=== PATIENT | male | born 1950 | race Caucasian/White ===

== ENCOUNTER → 2017-01-26 | Outpatient (CLI) | payer OTHER, MEDICARE ==
[2017-01-26 09:36] LABS: BLOOD UREA NITROGEN 18 mg/dL (7-22); BUN/CREATININE RATIO 25.71 (6-20); CALCIUM 9.2 mg/dL (8.7-10.7); CHOL/HDL RATIO 3.36 RATIO (0-4.0); EST GLOMERULAR FILTRATION > 60 (>60 ml/min/1.73m(2)); HDL CHOLESTEROL 36 mg/dL (40-150); SERUM CHOLESTEROL 121 mg/dL (120-200)
[2017-01-26 09:43] LABS: BASOPHILS # (AUTO) 0.02 10*3/UL; BASOPHILS % (AUTO) 0.3 % (0-1); EOSINOPHILS # (AUTO) 0.08 10*3/UL; EOSINOPHILS % (AUTO) 1.3 % (0-8); HEMATOCRIT 42.4 % (42.0-52.0); HEMOGLOBIN 14.4 g/dL (14.0-18.0); LYMPHOCYTES # (AUTO) 1.67 10*3/uL; MEAN CORPUSCULAR HEMOGLOBIN 29.6 PG (27-31); MEAN CORPUSCULAR VOLUME 87.2 FL (80-90); MEAN PLATELET VOLUME 9.5 FL (7.4-12.2); MONOCYTES # (AUTO) 0.51 10*3/UL (0.3-0.8); MONOCYTES % (AUTO) 8.5 % (5-15); NEUTROPHILS # (AUTO) 3.72 10*3/UL; NEUTROPHILS % (AUTO) 61.9 % (50-80); RED BLOOD COUNT 4.86 10^6/uL (4.70-6.10)
[2017-01-26 09:49] LABS: PLATELET MORPHOLOGY COMMENT NORMAL MORPHOLOGY (NORM); RBC MORPHOLOGY COMMENT NORMAL MORPHOLOGY (NORM); WBC MORPHOLOGY COMMENT NORMAL MORPHOLOGY (NORM)
[2017-01-26 10:02] LABS: HEMOGLOBIN A1C 5.56 % (4.2-6.0)
== END ==
LOC: LAB 09:11
PROVIDERS: ATTEND Internal Medicine
DX: E78.5 Hyperlipidemia, unspecified (principal); H81.12 Benign paroxysmal vertigo, left ear; I10 Essential (primary) hypertension; Z79.899 Other long term (current) drug therapy; Z12.5 Encounter for screening for malignant neoplasm of prostate
CPT/HCPCS: 36415; 80053; 80061; 82550; 83036; 84443; 85025; G0103

== ENCOUNTER → 2017-01-30 | Outpatient (CLI) | payer OTHER, MEDICARE | LOC: MMPC 11:11 | PROVIDERS: ATTEND Internal Medicine | DX: E78.5 Hyperlipidemia, unspecified (principal); I10 Essential (primary) hypertension; Z86.010 Personal history of colon polyps | CPT/HCPCS: 99214; G0463 ==

== ENCOUNTER → 2017-02-06 | Outpatient (CLI) | payer OTHER, MEDICARE | LOC: MMPC 11:11 | PROVIDERS: ATTEND Surgery | DX: K21.9 Gastro-esophageal reflux disease without esophagitis (principal); Z86.010 Personal history of colon polyps | CPT/HCPCS: 99213; G0463 ==

== ENCOUNTER 2017-02-15 09:08 | Day surgery (SDC) | payer OTHER, MEDICARE ==
[~2017-02-15 09:08] MED LIST: LIDOCAINE 2% VISCOUS(20 MG/1 ML) - 15 ML UD CUP PO ONE; LIDOCAINE W/ SODIUM BICARB 0.5 ML SYR ONE; Lactated Ringers 1,000 ML PRIMARY IV ONE; fentaNYL Inj 100 MCG/2 ML VIAL ONE
--- NOTE | 2017-02-15 10:38 | GEN.OPNOTE ---
EGD / Colonoscopy Report Surgery Date: 02/15/17 Preoperative Diagnosis: GERD. Personal history of colon polyps. History of dysplastic colon polyp. Postoperative Diagnosis: Same. Procedure: #1 esophagogastroduodenoscopy with biopsy. #2 complete colonoscopy with biopsy and destruction of 2 small polyps at 15 cm and biopsy of an abnormal patch of mucosa at 13 cm from the anal verge. Surgeon: Ernesto Russell MD Anesthesia Provider: Bhupinder Hughes CRNA Anesthesia Type: MAC Indications: See preoperative diagnosis EGD Findings: Esophagus: [Normal] GE Junction : [Inflammatory changes consistent with reflux. Irregularity of the Z line.] Fundus : [Normal] Body : [Normal] Prepyloric : [Mild erythema] Small Intestine : [Mild erythema] A lubricated flexible upper endoscope was inserted and passed through the esophagus and stomach into the duodenum. There is some erythema of the duodenal mucosa otherwise the duodenum and duodenal bulb were unremarkable. The pyloric channel was widely patent. There is some minimal inflammation and erythema at the antrum. Multiple biopsies were taken. Hemostasis was assured. The scope was retroflexed. Otherwise entire gastric mucosa was normal. The scope was straightened. Air was aspirated. The scope was withdrawn into the distal esophagus. There was signs of inflammatory duration inflammation consistent with reflux. Multiple biopsies were taken. Hemostasis was assured. The scope was withdrawn through the remainder of a normal-appearing esophagus and brought through the hypopharynx under suction completing that portion of the procedure. Colonoscopy Findings: Prep : [Excellent] Cecum : [Normal] Ascending : [Normal with 2 right-sided diverticuli] Transverse : [Normal] Sigmoid : [2 small polyps at 15 cm biopsied and destroyed. A patch of abnormal mucosa which looked like a bruise. Random biopsies were taken.] Rectum : [Normal] Digital Rectal Exam : [No perianal pathology. Prostate of normal size and consistency.] A lubricated flexible colonoscope was inserted and passed to the blind end of the cecum. The blind end of the cecum and ileocecal valve were clearly seen. Some retained liquid stool was cleansed with irrigation and suctioning. Air was aspirated as the scope was withdrawn. The cecum, ascending colon, with the exception of 2 diverticuli, the hepatic flexure, the transverse colon, splenic flexure, the descending colon, and the sigmoid colon were normal. There were 2 small polyps at 15 cm these were biopsied and destroyed. There is a patch of abnormal mucosa which looked like small bruises at 13 cm. Multiple biopsies were taken. Hemostasis was assured the remainder of the rectum was unremarkable and the scope was withdrawn completing the procedure. Patient tolerated all aspects of the procedure well without complication. He was taken to outpatient surgery in stable condition. Follow-up will be in my office on an as-needed basis. We will call the biopsy results and plan therapy and follow-up accordingly.
[2017-02-15 11:28] VITALS: RESP 16; TEMP 97
== END 2017-02-15 11:05 | disposition home or self-care (01) ==
LOC: SDSC 09:08
PROVIDERS: ATTEND Surgery
DX: K21.9 Gastro-esophageal reflux disease without esophagitis (principal); K63.5 Polyp of colon; Z86.010 Personal history of colon polyps
CPT/HCPCS: 43239 ×2; 45380 ×2; J2704; J3010; J7120

== ENCOUNTER 2017-03-11 15:47 | Emergency (ER) | payer OTHER, MEDICARE ==
[2017-03-11] MEDS ORDERED: TETRACAINE 0.5% - 2 ML EYE DROPS ONE (16:06)
[2017-03-11] MEDS ORDERED: FLUORESCEIN 1 MG EYE STRIP ONE (16:06)
[2017-03-11 16:15] VITALS: RESP 16; TEMP 97.3
[2017-03-11] MEDS ORDERED: TOBRAMYCIN 0.3% - 5 ML EYE DROPS EACH EYE ONE (16:17)
--- NOTE | 2017-03-11 16:21 | PDOC ---
Eye Complaint HPI - General Chief Complaint: Eye Problem / Injury Stated Complaint: FOREIGN BODY IN LEFT EYE Date Seen by Provider: 03/11/17 Time Seen by Provider: 16:15 Source: POSITIVE: Patient, Spouse Exam Limitations: POSITIVE: No limitations Nurse's Notes Reviewed & Considered: Yes - History of Present Illness Initial Comments: This very pleasant 66-year-old male comes in today with foreign object in his left eye. Earlier this morning around 10 AM patient was grinding steel with safety glasses and a full fascial drawn. He then developed a sensation of something in his eye. He attempted to irrigate his eye out but has had escalating pain. He comes in now for evaluation. He denies any fever chills or sweats, nausea vomiting or diarrhea, headache chest pain, cough, myalgias or arthralgias. 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) Recent Care Received: REPORTS: Denies Any Prior Injuries Related to Current Complaint?: No - Patient Home Medications Home Medications: Home Medications Aspirin 81 mg ORAL QD tab 02/04/11 Multivitamins W-Minerals/Lut [Centrum Silver Tablet] 1 each PO DAILY 01/11/12 Fluticasone Propionate [Flonase Allergy Relief] 2 spr MARTI DAILY #1 spr Cholecalciferol (Vitamin D3) [Vitamin D3] 1 tab PO QD #90 tab 01/30/17 Losartan Potassium 1 tab PO QD #90 tab 01/30/17 Simvastatin 1 tab ORAL QD #90 tab 01/30/17 Pantoprazole Sodium 1 tab PO DAILY #90 tab 02/20/17 - Patient Allergies Allergies/Adverse Reactions: Allergies Allergy/AdvReac Type Severity Reaction Status Date / Time cefaclor Allergy hives Verified 03/11/17 16:07 Past Medical History - heen HEENT History: Denies History Cardiovascular History: Hypertension, Hyperlipidemia Respiratory History: Denies History Gastrointestinal History: GERD Additional Gastrointestinal History: HX OF COLON POLYPS Genitourinary History: Denies History Endocrine History: Denies History Musculoskeletal History: Gout Prosthesis or Implant: No Neurological History: Denies History Additional Neurological History: HX VERTIGO DUT TO INNER EAR INFECTION IN THE PAST Blood Disorders: Denies History Psychiatric History: Denies History History of Sexually Transmitted Diseases: No Male Reproductive History: Denies History Cancer History: Denies History In Past Year Been Physically Harmed or Verbally Threatened: No History of MDRO: No History of Other Communicable Diseases: No Tobacco Use: Never Smoker Alcohol Use: None Substance Use Type: None Previous Surgical History: Yes Type / Date of Surgery: CATARACT EXT BILAT/ COLONOSCOPY/ RIGHT INGUINAL HERNIA/ TONSILLECTOMY/ VASECTOMY Anesthesia Reactions: No Malignant Hyperthermia: No Significant Family History: Heart disease ROS - Limitations ROS Limitations: No Limitations Constitution: REPORTS: Denies Symptoms Cardiovascular: REPORTS: Denies Cardiac Symptoms Respiratory: REPORTS: Denies Resp Symptoms Neurological: REPORTS: Denies Neuro Symptoms Gastrointestinal: REPORTS: Denies GI Symptoms Endocrine: REPORTS: Denies Symptoms Musculoskeletal: REPORTS: Denies MS Symptoms Genitourinary: REPORTS: Denies Symptoms Eyes: REPORTS: Eye Pain (Left eye with foreign body sensation) ENT: REPORTS: Denies Symptoms Skin: REPORTS: Denies Skin Symptoms Lympathic: REPORTS: Denies Lympathic Symptoms Immunologic: POSITIVE: Denies Symptoms Psychiatric: POSITIVE: Denies Psych Symptoms Eye Complaint Physical Exam - General Appearance General Appearance: POSITIVE: Alert, Cooperative, No Acute Distress, No Evidence of Trauma - Visual Acuity / Pupil Size Pupil Size: 5 mm: Bilateral - HEENT Head / Face: POSITIVE: Atraumatic, Normal Inspection, No Facial Swelling Eyes: POSITIVE: PERRL, EOM's Intact, Eyelids Uninjured, Conjunctivae Uninjured, No Nystagmus, No Globe Trauma, Foreign Material (Small piece of Material embeded superfically at six oclock over the pupil, left eye.) Ears: POSITIVE: Ears Normal Inspection, Auricle Normal Nose: POSITIVE: Inspection Normal, No Apparent Trauma, Nares Normal, No CSF Leak Oropharynx: POSITIVE: External Inspection Nml, Voice Normal Eye Complaint Progress - Patient's Progress Status: POSITIVE: Improved MDM / ED Course: Patient was evaluated. Tetracaine and forcing dye were applied to his left eye. Using a slit lamp a small foreign object was noted in the 6 o'clock position right over the pupil. This was easily removed with an 18-gauge needle. No further intervention was necessary. No rust ring was noted. Assessment: Foreign object left eye. Plan: Tobramycin drops 3 times a day to his left eye for 3 days. Follow-up with ophthalmology if no improvement. Return to the emergency department if worsening. - Consult Counseled: POSITIVE: Patient, Family, RE: DX, RE: Need for F/U Patient Care Time - Estimated PCT Patient Care Time (In Minutes): 15 Vital Signs - Recent Vital Signs Vital Signs: Vital Signs (Last 8 hours) Temp Pulse Resp BP Pulse Ox 03/11/17 16:02 97.3 F 72 16 102/67 96 - VS Reviewed Vital Signs Reviewed: Yes Discharge Clinical Impression: Corneal foreign body Discharge Disposition: Discharged to Home Condition: Stable Patient Instructions Given at Discharge: Eye Foreign Body (ED)
[2017-03-11] MEDS ORDERED: TETRACAINE 0.5% - 2 ML EYE DROPS LEFT EYE ONE (17:41)
[2017-03-11] MEDS ORDERED: FLUORESCEIN 1 MG EYE STRIP LEFT EYE ONE (17:42)
== END 2017-03-11 16:51 | disposition home or self-care (01) ==
LOC: ER 15:47
DX: T15.02XA Foreign body in cornea, left eye, initial encounter (principal); W31.89XA Contact with other specified machinery, initial encounter; Y99.0 Civilian activity done for income or pay
CPT/HCPCS: 65222; 99282